=== PATIENT | female | born 2000 | race Two or more races ===

== ENCOUNTER 2021-06-27 14:10 | Outpatient (REF) | payer OTHER, SELFPAY | END 2021-06-27 14:11 | disposition home or self-care (01) | LOC: HO.LAB 14:10 | PROVIDERS: Visit Provider Internal Medicine | DX: Z20.822 Contact with and (suspected) exposure to COVID-19 (principal) | CPT/HCPCS: C9803; U0003; U0005 ==

== ENCOUNTER 2024-09-16 14:13 | Emergency (ER) | payer OTHER, SELFPAY ==
[2024-09-16 14:15] VITALS: BP 124/82; PULSE 79; RESP 16; TEMP 36.4; O2SAT 100; BMI 27.3
--- NOTE | 2024-09-16 14:36 | ED_ITS ---
HPI - Female Genitourinary General Chief complaint: Urogenital-Female Stated complaint: 1 month preg ? wants check up Time Seen by Provider: 09/16/24 14:27 Source: patient Mode of arrival: ambulatory Limitations: no limitations History of Present Illness HPI Narrative: Patient is a 24-year-old female presenting to emergency department for evaluation, endorses over the past 2 weeks has been experiencing mild/suprapubic cramping, nausea without vomiting, generalized fatigue and an intermittent headache. She reports that she took 3 home test this week all which have been positive, making her a with LMP 08/18/2024. She had contacted in OBGYN office yesterday and left a voicemail to schedule a routine care. She denies associated fevers, chills, chest pain, shortness of breath, abdominal pain, back pain, dysuria, frequency/urgency/hesitancy. Denies any vaginal bleeding or abnormal vaginal discharge, admits to having clear/white discharge which is her baseline. Denies concern for sexually transmitted infections. Related Data Previous Rx's ?Medication ?Instructions ?Recorded doxylamine succinate 25 mg tablet 25 mg PO BEDTIME PRN nausea and 09/16/24 (Unisom (doxylamine)) vomiting #30 tabs vit no.95-ferrous 1 tab PO DAILY #30 tabs 09/16/24 fumarate 28 mg-folic acid 800 mcg tablet () pyridoxine (vitamin B6) 25 mg 25 mg PO TID #30 tabs 09/16/24 tablet Allergies Allergy/AdvReac Type Severity Reaction Status Date / Time Penicillins Allergy Hives Verified 09/16/24 14:18 Review of Systems 2 Review of Systems: Yes all other systems are reviewed and are negative PMFSH Past Medical History Attestation statement: The following information was validated with the patient. Source: old records reviewed Social History Social History Advance Directives: No Advance Directives Information Provided: No Physical Exam 2 Vital Signs: Vital Signs: Last Vital Signs Temp 97.6 F 09/16/24 14:15 Pulse 79 09/16/24 14:15 Resp 16 09/16/24 14:15 BP 124/82 09/16/24 14:15 Pulse Ox 100 09/16/24 14:15 O2 Del Method Room Air 09/16/24 14:15 BMI result Body Mass Index 27.3 Appearance: Alert.?Oriented to person, place and time. No acute distress.?Normal affect. Eyes: Pupils equal, round and reactive to light.? ENT: Pharynx normal.?? Neck: Normal inspection.? Neck supple.?? CVS: Heart sounds normal. Normal heart rate and rhythm.? Pulses normal.?? Respiratory: No respiratory distress.? Lung sounds clear to auscultation bilaterally?? Abdomen: Soft and non-tender. Normoactive bowel sounds. No CVAT. Skin: Skin warm and dry.? Normal skin color.? Extremities: No lower extremity edema.? Neuro: Moves all extremities spontaneously. Sensation intact bilaterally. Ambulates with normal steady gait. Course Reevaluation(s) Reevaluation #1: CBC is without leukocytosis, has a mild anemia that does not meet transfusion criteria no thrombocytopenia. No electrolyte derangement. No MARILYN. No evidence of urinary tract infection. HCG consistent with gestation approximately 5-7 weeks does not directly correspond to her LMP which would date her slightly less than this. However she should follow-up closely with her fire protection designer and arrange for outpatient ultrasound for better dating of gestation. As per [facility], does not have evidence of ectopic , no indication emergent ultrasound at this time. Sent prescriptions for vitamin, vitamin B6 and Unisom to pharmacy. She is tolerating intake orally without difficulty. Medical Decision Making Medical Decision Making [facility] Narrative: Patient is a 24-year-old female presenting to emergency department for evaluation of fatigue nausea intermittent headache and mild suprapubic cramping in the setting of a positive home test with LMP 08/18/2024. Overall well-appearing, nontoxic, afebrile. Abdominal examination is benign. No CVAT. No symptoms. Reporting baseline vaginal discharge without acute change and denies concern for sexually transmitted infections. She unfortunately has not began taking any vitamins reports that she needs a prescription for this. Differential Diagnosis Differential Diagnoses: The differential diagnosis associated with the presentation includes First trimester , -related nausea, gastroenteritis, UTI. Suprapubic discomfort, nonlateralizing pain no reports of severe pain, low suspicion for ectopic . No CVAT to suggest pyelonephritis Admission/Observation Consideration of admission/observation: Escalation of care including admission/observation considered Lab Data [facility] Lab Attestation statement: I reviewed the patient's lab results. (See course narrative) 09/16/24 14:48 09/16/24 14:48 Labs: Lab Results 09/16/24 Range/Units 14:48 WBC 9.8 (4.8-10.8) X10*3/uL RBC 3.56 L (4.20-5.50) X10*6/uL Hgb 11.2 L (12.0-16.0) g/dl Hct 32.5 L (37.0-47.0) % MCV 91.3 (80.0-98.0) fL MCH 31.5 (27.0-33.0) pg MCHC 34.5 (31.0-35.0) g/dl RDW 12.1 (11.0-16.0) % Plt Count 241 (160-400) X10*3/uL MPV 9.6 (9.4-12.3) fL Immature Gran % (Auto) 0.3 (0.0-0.4) % Neut % (Auto) 56.5 (45-73) % Lymph % (Auto) 35.2 (20-40) % [place] % (Auto) 6.9 (2-11) % Eos % (Auto) 0.6 (0-4) % Baso % (Auto) 0.5 (0-2) % Lymph # (Auto) 3.5 (1.2-4.9) X10*3/uL [place] # (Auto) 0.7 (0.1-1.2) X10*3/uL Eos # (Auto) 0.1 (0.0-0.4) X10*3/uL Baso # (Auto) 0.1 (0.0-0.2) X10*3/uL Abs Immat Gran (auto) 0.03 (0.00-0.03) X10*3/uL Absolute Neuts (auto) 5.5 (2.0-8.3) x10*3/uL Absolute Nucleated RBC 0.000 (0.0-0.012) X10*3/uL Nucleated RBC % (auto) 0.0 (0.0-0.2) /100WBC Sodium 138 (135-145) mmol/L Potassium 4.7 (3.3-5.1) mmol/L Chloride 109 H (96-108) mmol/L Carbon Dioxide 22 (22-29) mmol/L Anion Gap 12 (12-20) BUN 10 (9-16) mg/dL Creatinine 0.69 (0.5-1.4) mg/dL Estim Creat Clear Calc 117.9 Estimated GFR > 60 Random Glucose 79 (60-115) mg/dL Calcium 9.0 (8.4-10.2) mg/dL Total Bilirubin 0.4 (0.0-1.0) mg/dL AST 24 (5-31) U/L ALT 16 (0-31) U/L Alkaline Phosphatase 43 (39-117) U/L Total Protein 7.1 (6.5-8.0) g/dL Albumin 4.3 (3.5-5.0) g/dL Beta HCG, Quant 86124 mIU/mL Urine Color Yellow Urine Appearance Clear Urine pH 6.0 (5.0-9.0) Ur Specific [place] 1.015 (1.005-1.025) Urine Protein Negative (Neg-Trace) mg/dL Urine Glucose (UA) Negative (Negative) mg/dL Urine Ketones Negative (Negative) mg/dL Urine Blood Negative (Negative) Urine Nitrite Negative (Negative) Ur Leukocyte Esterase Negative (Negative) Influenza Type A (PCR) NEGATIVE (Negative) Influenza Type B (PCR) NEGATIVE (Negative) RSV RNA Qual (PCR) NEGATIVE (Negative) SARS-CoV-2 RNA (RT-PCR) NEGATIVE (Negative) Independent Historian Clinical information obtained from an independent historian. History obtained from or confirmed by: Spouse External Record Review External record reviewed: Outpatient record Prescription Management I considered prescription management with: Other (See course narrative for further detail) Discharge Plan Discharge Clinical Impression: Vomiting or nausea of Patient Disposition: Home, Self-Care Instructions: Nausea and Vomiting in (ED) Additional Instructions: Your blood work today; ECG which is a marker for is elevated consistent with . The number is not a perfect measurement of how far along UR but may range anywhere from 5-7 weeks. However you reported your last menstrual period as 08/18/2024 making your estimated due date May 25 2025. It is reassuring that you are not having any abnormal vaginal discharge or bleeding. Your urine test today is without evidence of infection. Continue to schedule your appointment with your OBGYN provider as you have been thus far. As he progressed further along in they will schedule you for an ultrasound and may better be able to tell you exactly how far along UR in what your due date is. I have sent prescriptions to your pharmacy including a vitamin as well as vitamin B6 to be used 3 times daily every 6 hours as needed for nausea and vomiting as well as Unisom to take in the evening for nausea. Prescriptions: New PNV cmb#95-ferrous fumarate-FA [] 28 mg iron- 800 mcg tablet 1 tab PO DAILY Qty: 30 0RF pyridoxine (vitamin B6) 25 mg tablet 25 mg PO TID Qty: 30 0RF Unisom (doxylamine) 25 mg tablet 25 mg PO BEDTIME PRN (Reason: nausea and vomiting) Qty: 30 0RF Referrals: Physician,Unknown J [Primary Care Provider] - Print Language: Israeli
[2024-09-16 14:54] LABS: Basophils Absolute Auto 0.1 X10*3/uL (0.0-0.2); Basophils Percent Auto 0.5 % (0-2); Eosinophils Absolute Auto 0.1 X10*3/uL (0.0-0.4); Eosinophils Percent Auto 0.6 % (0-4); Hematocrit 32.5 % (37.0-47.0); Hemoglobin 11.2 g/dl (12.0-16.0); Imm Gran Abs Auto 0.03 X10*3/uL (0.00-0.03); Imm Gran Pct Auto 0.3 % (0.0-0.4); Lymphocytes Absolute Auto 3.5 X10*3/uL (1.2-4.9); Lymphocytes Percent Auto 35.2 % (20-40); MANUAL DIFF FLAG NO; Mean Corpuscular HGB Conc 34.5 g/dl (31.0-35.0); Mean Corpuscular Hemoglobin 31.5 pg (27.0-33.0); Mean Corpuscular Volume 91.3 fL (80.0-98.0); Mean Platelet Volume 9.6 fL (9.4-12.3); Monocytes Absolute Auto 0.7 X10*3/uL (0.1-1.2); Monocytes Percent Auto 6.9 % (2-11); Neutrophils Absolute Auto 5.5 x10*3/uL (2.0-8.3); Neutrophils Percent Auto 56.5 % (45-73); Platelet Count 241 X10*3/uL (160-400); Red Blood Count 3.56 X10*6/uL (4.20-5.50); Red Cell Distribution Width 12.1 % (11.0-16.0); White Blood Count 9.8 X10*3/uL (4.8-10.8)
[2024-09-16 14:55] LABS: Appearance Urine Clear; Color Urine Yellow; Glucose Urine UA Negative (Negative); Leukocyte Esterase Urine Negative (Negative); Nitrite Urine Negative (Negative); Specific Gravity - Urine 1.015 (1.005-1.025); Urine Blood Negative (Negative); Urine Ketones Negative (Negative); Urine Protein Negative (Neg-Trace)
[2024-09-16 15:31] LABS: Alanine Aminotransferase 16 U/L (0-31); Albumin Level 4.3 g/dL (3.5-5.0); Anion Gap 12 (12-20); Aspartate Amino Transferase 24 U/L (5-31); Bilirubin Total 0.4 mg/dL (0.0-1.0); Blood Urea Nitrogen 10 mg/dL (9-16); Carbon Dioxide 22 mmol/L (22-29); Chloride 109 mmol/L (96-108); Creatinine Clr Calc Pharmacy 117.9; Estimated Glomerular Filt Rate > 60; Glucose Random 79 mg/dL (60-115); Potassium 4.7 mmol/L (3.3-5.1); Sodium 138 mmol/L (135-145); Total Protein 7.1 g/dL (6.5-8.0)
[2024-09-16 15:36] LABS: Influenza A PCR NEGATIVE (Negative); Influenza B PCR NEGATIVE (Negative); Resp Syncy Virus RNA Qual PCR NEGATIVE (Negative); SARS COV2 PCR INHOUSE NEGATIVE (Negative)
[2024-09-16 15:40] LABS: Alkaline Phosphatase 43 U/L (39-117)
[2024-09-16 15:52] LABS: HCG Quantitative 21705 mIU/mL
[2024-09-16 16:21] VITALS: BP 124/82; PULSE 79; RESP 16; TEMP 36.4; O2SAT 100
== END 2024-09-16 16:22 | disposition home or self-care (01) ==
PROVIDERS: Nurse Practitioner Family; Emergency Provider Emergency Medicine Emergency Medical Services
DX: O21.8 Other vomiting complicating pregnancy (principal); Z3A.00 Weeks of gestation of pregnancy not specified; Z03.818 Encounter for observation for suspected exposure to other biological agents ruled out
CPT/HCPCS: 0241U; 36415; 80053; 81003; 84702; 85025; 99283; 99284

== ENCOUNTER 2024-09-17 19:52 | Emergency (ER) | payer OTHER, SELFPAY ==
--- NOTE | ~2024-09-17 | US_ITS ---
EXAMINATION: EXAMINATION: ULTRASOUND PELVIC, COMPLETE CLINICAL INFORMATION: . Abdominal cramping. HCG quantitative level September 16, 2024 21,705, September 17, 2024 32,144 COMPARISON: None. TECHNIQUE: Transvaginal: Used to better visualize pelvic structures Transabdominal: Not adequate for visualization. Spectral Doppler and color Doppler exam was utilized. LMP: 08/18/2024. Gestational age by LMP is 4 weeks 2 days. WAYNE May 25, 2025 FINDINGS: UTERUS: Single intrauterine gestational sac. Yolk sac is present. pole present. heart rate 122 bpm. [place]-rump length 0.44 cm. Gestational age by this ultrasound 6 weeks 1 day. WAYNE May 12, 2025. Uterus measures 9.8 x 3.9 x 4.8 cm. ADNEXA: Ovarian vascularity:Doppler demonstrates both arterial and venous vascular flow in the right and left ovary. No evidence of ovarian torsion. Right Ovary: Corpus luteum cyst measuring 1.8 cm. Right ovary measures 4.2 x 2.1 x 2.8 cm. Left Ovary: 3.4 x 1.4 x 1.6 cm Cul-de-sac: No Fluid US/US OB pelvic and transvaginal IMPRESSION: Single intrauterine gestation. Estimated gestational age by this exam 6 weeks 1 day. WAYNE May 12, 2025. Electronically signed by: Cb Umaña MD 09/17/2024 11:35 PM EST
[2024-09-17 20:21] VITALS: BP 130/83; PULSE 71; RESP 16; TEMP 36.8; O2SAT 100; BMI 26.9
--- NOTE | 2024-09-17 20:24 | ED_ITS ---
HPI - General Chief complaint: Abdominal Pain Stated complaint: abd pain, 1 mo Time Seen by Provider: 09/17/24 22:01 Source: patient Limitations: no limitations History of Present Illness ED Provider: Pastora maki PA-C HPI Narrative: Patient is a 24 year old female who is 6 weeks and presents with a complaint of diffuse abdominal pain x7 days. Patient states this has been worsening over this time. She was seen yesterday in the ED for the same symptom and was notified of her . Patient also states she has not had a BM in 2 weeks. She has not tried any OTC laxatives or stool softeners. She also has SOB, chills, and dizziness today. She has been nauseous which the pyridoxine has been alleviating. She has not been able to eat in about 2 days due to nausea. No vomiting. She denies chest pain, vaginal bleeding, cough, fever, and sick contacts. Related Data Previous Rx's ?Medication ?Instructions ?Recorded doxylamine succinate 25 mg tablet 25 mg PO BEDTIME PRN nausea and 09/16/24 (Unisom (doxylamine)) vomiting #30 tabs vit no.95-ferrous 1 tab PO DAILY #30 tabs 09/16/24 fumarate 28 mg-folic acid 800 mcg tablet () pyridoxine (vitamin B6) 25 mg 25 mg PO TID #30 tabs 09/16/24 tablet Allergies Allergy/AdvReac Type Severity Reaction Status Date / Time Penicillins Allergy Hives Verified 09/17/24 20:21 Review of Systems 2 Review of Systems: Yes all other systems are reviewed and are negative Constitutional: Constitutional: Reports chills, Denies fatigue, Denies fever(s), Denies frequent falls, Denies headache(s), Denies poor appetite and Denies weakness Eyes: Eyes: Denies change in vision, Denies eye discharge, Denies dry eyes and Denies itchy eyes ENT: Reports dizziness, Denies headache(s) and Denies odynophagia Cardiovascular: Cardiovascular: Denies Abdominal Distension, Denies chest pain, Denies syncope, Denies edema, Denies leg edema, Denies palpitations and Reports dyspnea Respiratory: Respiratory: Denies cough and Reports dyspnea Gastrointestinal: Gastrointestinal: Reports constipation, Denies heartburn, Denies diarrhea, Reports nausea, Denies odynophagia and Denies vomiting Genitourinary: Genitourinary: Denies hematuria, Denies dysuria, Denies pelvic pain, Denies urinary incontinence, Denies urinary hesitancy, Reports urinary urgency, Denies vaginal discharge and Denies vaginal pruritus Musculoskeletal: Musculoskeletal: Denies arthralgias, Denies joint swelling, Denies numbness and Denies tingling Integumentary/Breasts: Skin/Breast: Denies pruritus, Denies lesions and Denies rash Neurologic: Reports dizziness, Denies syncope, Denies frequent falls, Denies headache(s), Denies numbness, Denies tingling and Denies weakness Psychiatric: Psychiatric: Denies homicidal ideation and Denies suicidal ideation Endocrine: Endocrine: Denies fatigue and Denies palpitations Allergic/Immunologic: Allergic/Immunologic: Denies itchy eyes PMFSH Past Medical History Attestation statement: The following information was validated with the patient. Social History Social History Advance Directives: No Advance Directives Information Provided: No Do you have a plan to hurt others: No Plan Physical Exam 2 Vital Signs: Vital Signs: Last Vital Signs Temp 98.6 F 09/17/24 23:12 Pulse 56 09/17/24 23:12 Resp 16 09/17/24 23:12 BP 117/63 09/17/24 23:12 Pulse Ox 98 09/17/24 23:12 O2 Del Method Room Air 09/17/24 23:12 BMI result Body Mass Index 26.9 Const: General: cooperative, healthy appearing, comfortable and no acute distress; No diaphoretic Nutritional Appearance: average body habitus O rientation/consciousness: patient oriented x3 Limitations: no limitations HEENT: Head: Yes normal to inspection, Yes normocephalic and Yes atraumatic Eyes: General: appearance normal, both eyes and all related structures A lignment and Position: alignment normal Periorbital: periorbital findings normal Eyelids: Yes eyelids normal Conjunctivae: conjunctivae normal S clerae: sclerae normal Corneas: corneas normal Pupils: Equal, round and reactive pupils present EOM: EOMs intact bilaterally Neck: Neck: Yes normal visual inspection, Yes full ROM and Yes no meningeal signs Resp: Effort & Inspection: normal respiratory effort, able to speak in complete sentences, no cough, not labored, no respiratory distress, no tracheal deviation and no use of accessory muscles Auscultation: clear to auscultation bilaterally, no rales, no rhonchi and no wheezes Cardio: Jugular venous distension: no JVD Rate: regular rate Rhythm: r egular rhythm Heart sounds: S1 normal heart sound present and S2 normal heart sound present GI: Inspection: Yes normal to inspection and No distended Palpation (GI): S oft to palpation, not rigid, no hepatomegaly, no splenomegaly and no masses Skin: General skin exam: no rashes or lesions noted Wounds: no wounds Neuro: General: patient oriented x3, no meningeal signs, no focal motor deficits and CN's II-XI intact bilaterally Cranial nerves: Yes CN's II-XII intact bilaterally, Yes Equal, round and reactive pupils present and Yes Bilaterally intact EOM present Extrem: General: Yes normal to inspection and Yes full ROM Psych: Other: calm and cooperative Appearance: grossly normal Mental Status: mental status grossly normal Speech and movement: Normal speech and movement present and Clear speech present Affect: normal affect Attitude: cooperative Thought process: N ormal thought process present Thought content: Normal thought content present Insight: Good insight present (Psych) Judgement: Good judgement present (Psych) Course Course Course Narrative: This is an RME: Additional HPI, ROS, PE not included below will be deferred to primary provider. RME assessment and note performed by: Stephanie Darden PA-C This is a 29-avlc-lld-female, with LMP 08/18/2024, who presents to the ER with complaints of nausea, vomiting, abdominal pain since last week. Does not have OBGYN. Patient was seen here yesterday. estimated 5-7 weeks, no ultrasound as of yet. Reports history of constipation, last bowel movement was yesterday. Plan: Labs, UA, ultrasound, further ER evaluation needed Medical Decision Making Medical Decision Making MDM Narrative: Delbert Maki PA-C have personally assessed and manage the patient,Yecenia RICHARDS observed and helped formulate the documentation Patient is a 24 year old female who is 6 weeks and presents with a complaint of diffuse abdominal pain x7 days. Patient states this has been worsening over this time. She was seen yesterday in the ED for the same symptom and was notified of her . Patient also states she has not had a BM in 2 weeks. She has not tried any OTC laxatives or stool softeners. She also has SOB, chills, and dizziness today. She has been nauseous which the pyridoxine has been alleviating. She has not been able to eat in about 2 days due to nausea. No vomiting. She denies chest pain, vaginal bleeding, cough, fever, and sick contacts. PMH: 6 weeks DDx: , constipation, viral syndrome, ectopic , electrolyte abnormality, dehydration, bowel obstruction Plan: Given that the patient had a positive test and is experiencing symptoms common to such as abdominal pain, nausea, and constipation, I believe this may be the cause of her symptoms. Her abdominal pain could also be due to severe constipation. As she has not been able to eat in roughly 2 days, the cause of her dizziness, constipation, and nausea could be due to dehydration or electrolyte abnormality. Will rule out with CMP and UA. Viral syndrome was considered, however patient denies other respiratory symptoms as well as sick contacts. Will rule out other causes first. Considered ectopic , however patient's US was normal. Thought about bowel obstruction, however patient is not distended, was able to pass a small hard stool today, and has symptoms more consistent with . per Pastora Maki PA-C Patient seen in the emergency department yesterday with same symptoms, however she did not discuss her constipation. The repeat transvaginal ultrasound was unnecessary. We will send with home care instructions. She actually has her 1st appointment with her crystal syrup maker tomorrow I have independently reviewed the following tests: Labs: Ultrasound obstetric: US/US OB pelvic and transvaginal IMPRESSION: Single intrauterine gestation. Estimated gestational age by this exam 6 weeks 1 day. WAYNE May 12, 2025. Electronically signed by: Cb Umaña MD 09/17/2024 11:35 PM [facility] Lab Data 09/17/24 20:40 09/17/24 20:40 Labs: Lab Results 09/17/24 Range/Units 20:40 WBC 11.1 H (4.8-10.8) X10*3/uL RBC 3.81 L (4.20-5.50) X10*6/uL Hgb 11.9 L (12.0-16.0) g/dl Hct 34.4 L (37.0-47.0) % MCV 90.3 (80.0-98.0) fL MCH 31.2 (27.0-33.0) pg MCHC 34.6 (31.0-35.0) g/dl RDW 12.0 (11.0-16.0) % Plt Count 248 (160-400) X10*3/uL MPV 9.5 (9.4-12.3) fL Immature Gran % (Auto) 0.2 (0.0-0.4) % Neut % (Auto) 55.8 (45-73) % Lymph % (Auto) 35.5 (20-40) % [place] % (Auto) 7.7 (2-11) % Eos % (Auto) 0.4 (0-4) % Baso % (Auto) 0.4 (0-2) % Lymph # (Auto) 3.9 (1.2-4.9) X10*3/uL [place] # (Auto) 0.9 (0.1-1.2) X10*3/uL Eos # (Auto) 0.0 (0.0-0.4) X10*3/uL Baso # (Auto) 0.0 (0.0-0.2) X10*3/uL Abs Immat Gran (auto) 0.02 (0.00-0.03) X10*3/uL Absolute Neuts (auto) 6.2 (2.0-8.3) x10*3/uL Absolute Nucleated RBC 0.000 (0.0-0.012) X10*3/uL Nucleated RBC % (auto) 0.0 (0.0-0.2) /100WBC Sodium 139 (135-145) mmol/L Potassium 3.8 (3.3-5.1) mmol/L Chloride 106 (96-108) mmol/L Carbon Dioxide 22 (22-29) mmol/L Anion Gap 15 (12-20) BUN 8 L (9-16) mg/dL Creatinine 0.78 (0.5-1.4) mg/dL Estim Creat Clear Calc 103.4 Estimated GFR > 60 Random Glucose 90 (60-115) mg/dL Calcium 9.6 D (8.4-10.2) mg/dL Magnesium 1.9 (1.6-2.6) mg/dL Total Bilirubin 0.7 (0.0-1.0) mg/dL Direct Bilirubin 0.3 (0.0-0.5) mg/dL AST 21 (5-31) U/L ALT 14 (0-31) U/L Alkaline Phosphatase 41 (39-117) U/L Total Protein 7.6 (6.5-8.0) g/dL Albumin 4.6 (3.5-5.0) g/dL Beta HCG, Quant 05819 mIU/mL Urine Color Yellow Urine Appearance Clear Urine pH 6.5 (5.0-9.0) Ur Specific [place] <= 1.005 (1.005-1.025) Urine Protein Negative (Neg-Trace) mg/dL Urine Glucose (UA) Negative (Negative) mg/dL Urine Ketones Trace (Negative) mg/dL Urine Blood Negative (Negative) Urine Nitrite Negative (Negative) Ur Leukocyte Esterase Negative (Negative) Discharge Plan Discharge Clinical Impression: Constipation, 6 weeks gestation of Patient Disposition: Home, Self-Care Instructions: Constipation (ED), First Trimester (ED) Additional Instructions: All of your labs and the ultrasound were normal. You are measuring approximately 6 weeks and 1 day gestation. See home care instructions in regard to the constipation. You can use milk of magnesia, this can be purchased [id number] and it is safe in . Keep your pending appointment with your crystal syrup maker scheduled for tomorrow. Prescriptions: No Action PNV cmb#95-ferrous fumarate-FA [] 28 mg iron- 800 mcg tablet 1 tab PO DAILY Qty: 30 0RF pyridoxine (vitamin B6) 25 mg tablet 25 mg PO TID Qty: 30 0RF Unisom (doxylamine) 25 mg tablet 25 mg PO BEDTIME PRN (Reason: nausea and vomiting) Qty: 30 0RF Print Language: Luxembourgish
--- NOTE | 2024-09-17 20:28 | ECG_ITS ---
Test Reason : DIZZINESS Blood Pressure : / mmHG Vent. Rate : 066 BPM Atrial Rate : 066 BPM P-R Int : 162 ms QRS Dur : 068 ms QT Int : 396 ms P-R-T Axes : 065 015 017 degrees QTc Int : 415 ms Sinus rhythm with Premature supraventricular complexes Cannot rule out Anterior infarct , age undetermined Abnormal ECG No previous ECGs available Referred By: Stephanie Darden Electronically Signed By:MOLLY PASCUAL MD
[2024-09-17 20:44] LABS: MANUAL DIFF FLAG NO
[2024-09-17 20:46] LABS: Basophils Percent Auto 0.4 % (0-2); Eosinophils Percent Auto 0.4 % (0-4); Hematocrit 34.4 % (37.0-47.0); Hemoglobin 11.9 g/dl (12.0-16.0); Imm Gran Abs Auto 0.02 X10*3/uL (0.00-0.03); Imm Gran Pct Auto 0.2 % (0.0-0.4); Lymphocytes Absolute Auto 3.9 X10*3/uL (1.2-4.9); Lymphocytes Percent Auto 35.5 % (20-40); Mean Corpuscular HGB Conc 34.6 g/dl (31.0-35.0); Mean Corpuscular Hemoglobin 31.2 pg (27.0-33.0); Mean Corpuscular Volume 90.3 fL (80.0-98.0); Mean Platelet Volume 9.5 fL (9.4-12.3); Monocytes Absolute Auto 0.9 X10*3/uL (0.1-1.2); Monocytes Percent Auto 7.7 % (2-11); Neutrophils Absolute Auto 6.2 x10*3/uL (2.0-8.3); Neutrophils Percent Auto 55.8 % (45-73); Platelet Count 248 X10*3/uL (160-400); Red Blood Count 3.81 X10*6/uL (4.20-5.50); White Blood Count 11.1 X10*3/uL (4.8-10.8)
[2024-09-17 20:55] LABS: Appearance Urine Clear; Color Urine Yellow; Glucose Urine UA Negative (Negative); Leukocyte Esterase Urine Negative (Negative); Nitrite Urine Negative (Negative); PH 6.5 (5.0-9.0); Specific Gravity - Urine <= 1.005 (1.005-1.025); Urine Blood Negative (Negative); Urine Ketones Trace mg/dL (Negative); Urine Protein Negative (Neg-Trace)
[2024-09-17 20:59] LABS: Alanine Aminotransferase 14 U/L (0-31); Albumin Level 4.6 g/dL (3.5-5.0); Alkaline Phosphatase 41 U/L (39-117); Anion Gap 15 (12-20); Aspartate Amino Transferase 21 U/L (5-31); Bilirubin Direct 0.3 mg/dL (0.0-0.5); Bilirubin Total 0.7 mg/dL (0.0-1.0); Blood Urea Nitrogen 8 mg/dL (9-16); Calcium 9.6 mg/dL (8.4-10.2); Carbon Dioxide 22 mmol/L (22-29); Chloride 106 mmol/L (96-108); Creatinine Clr Calc Pharmacy 103.4; Estimated Glomerular Filt Rate > 60; Glucose Random 90 mg/dL (60-115); Magnesium 1.9 mg/dL (1.6-2.6); Potassium 3.8 mmol/L (3.3-5.1); Sodium 139 mmol/L (135-145); Total Protein 7.6 g/dL (6.5-8.0)
[2024-09-17 21:32] LABS: HCG Quantitative 32144 mIU/mL
[2024-09-17 23:12] VITALS: BP 117/63; PULSE 56; RESP 16; TEMP 37; O2SAT 98
[2024-09-18 00:24] VITALS: BP 109/65; PULSE 83; RESP 16; TEMP 37.1; O2SAT 99
--- NOTE | 2024-09-18 00:29 | PC.NURSE ---
This took over care from WILY Meraz at 23:00, this nurse reviewed discharge instructions with pt, pt verbalized understanding, no sob , chest pain or distress upon discharge.
[2024-09-18 00:34] VITALS: BP 109/65; PULSE 83; RESP 16; TEMP 37.1; O2SAT 98
== END 2024-09-18 00:35 | disposition home or self-care (01) ==
PROVIDERS: Physician Assistant Medical; Emergency Provider Internal Medicine
DX: O26.891 Other specified pregnancy related conditions, first trimester (principal); R42 Dizziness and giddiness; K59.00 Constipation, unspecified; Z3A.01 Less than 8 weeks gestation of pregnancy; R94.31 Abnormal electrocardiogram [ECG] [EKG]; Z79.899 Other long term (current) drug therapy
CPT/HCPCS: 36415; 76801; 76817; 80048; 80076; 81003; 83735; 84702; 85025; 93005; 99284

== ENCOUNTER → 2024-09-17 20:28 | Outpatient (BNV) | payer OTHER, SELFPAY | PROVIDERS: Emergency Provider Internal Medicine; Visit Provider Internal Medicine Cardiovascular Disease | DX: R42 Dizziness and giddiness (principal); I49.1 Atrial premature depolarization; R94.31 Abnormal electrocardiogram [ECG] [EKG] | CPT/HCPCS: 93010 ==